=== PATIENT | male | born 1970 | race Caucasian/White ===

== ENCOUNTER → 2016-05-06 | Outpatient (REF) | payer BC, OTHER ==
[2016-05-06 18:46] LABS: ALBUMIN 4.3 g/dL (3.4-5.0); ANION GAP 15.7 MEQ/L (3-15); CALCULATED IONIZED CALCIUM 4.1 mg/dL (3.8-4.6); TOTAL PROTEIN 7.4 g/dL (6.4-8.5)
== END ==
LOC: LAB 16:58
PROVIDERS: ATTEND Family Medicine
DX: E78.4 Other hyperlipidemia (principal); E11.9 Type 2 diabetes mellitus without complications; Z13.29 Encounter for screening for other suspected endocrine disorder
CPT/HCPCS: 80053; 83036; 84443